=== PATIENT | male | born 1975 | race American Indian/Alaskan Native ===

== ENCOUNTER 2021-06-15 06:43 | Emergency (ER) | payer SELFPAY ==
--- NOTE | 2021-06-15 07:33 | Emergency Department Report ---
ED Back Pain/Injury HPI - General Chief Complaint: Back Pain/Injury Stated Complaint: BACK PAIN Time Seen by Provider: 06/15/21 07:08 Source: patient Limitations: No Limitations - History of Present Illness Initial Comments: 45-year-old male who denies any significant past medical history presents to the ER today with complaints of low back pain. Patient states that his pain started about 3 days ago. He states that he woke up with the pain. He states that is mainly in the left lower back, and radiates into his left posterior thigh. 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 He states that he had muscle strain before in the past but this pain does not feel similar. He states that the pain is con stant and is worse with any movement. He did take Aleve last night without any relief of the pain. He denies any associated abdominal pain, lower extremity numbness, weakness, tingling, saddle anesthesia, chest pain or shortness of breath. He denies any history of drug use or alcohol abuse. MD Complaint: back pain -: Gradual, days(s) (3) - Related Data Previous Rx's Medication Instructions Recorded Last Taken Type Ibuprofen [Motrin] 600 mg PO Q8H PRN #30 tablet 03/19/21 Unknown Rx methOCARBAMOL [Robaxin TAB] 750 mg PO Q8H PRN #30 tablet 06/15/21 Unknown Rx methylPREDNISolone [Medrol 4MG 4 mg PO DAILY #1 tab.ds.pk 06/15/21 Unknown Rx DOSEPAK (21 tabs)] traMADoL [Ultram] 50 mg PO Q4HR PRN #12 tablet 06/15/21 Unknown Rx Allergies Allergy/AdvReac Type Severity Reaction Status Date / Time No Known Allergies Allergy Unverified 03/19/21 16:14 ED Review of Systems ROS: Stated complaint: BACK PAIN Other details as noted in HPI Comment: All other systems reviewed and negative Constitutional: denies: chills, fever Eyes: denies: eye pain, eye discharge, vision change ENT: denies: ear pain, throat pain Respiratory: denies: cough, shortness of breath, SOB with exertion, SOB at rest, wheezing Cardiovascular: denies: chest pain, palpitations, dyspnea on exertion, edema, syncope, paroxysmal nocturnal dyspnea Gastrointestinal: denies: abdominal pain, nausea, diarrhea, constipation, hematemesis, melena, hematochezia Genitourinary: denies: urgency, dysuria, frequency, hematuria, discharge, testicular pain, testicular mass Musculoskeletal: back pain Skin: denies: rash, lesions, change in color, change in hair/nails, pruritus Neurological: denies: headache, weakness, numbness, paresthesias, confusion, abnormal gait, vertigo Psychiatric: denies: anxiety, depression, auditory hallucinations, visual hallucinations, homicidal thoughts, suicidal thoughts Hematological/Lymphatic: denies: easy bleeding, easy bruising, swollen glands ED Past Medical Hx - Past Medical History Previous Medical History?: No - Surgical History Past Surgical History?: No - Medications Home Medications: Home Medications Medication Instructions Recorded Confirmed Last Taken Type Ibuprofen [Motrin] 600 mg PO Q8H PRN #30 tablet 03/19/21 Unknown Rx methOCARBAMOL [Robaxin TAB] 750 mg PO Q8H PRN #30 tablet 06/15/21 Unknown Rx methylPREDNISolone [Medrol 4MG 4 mg PO DAILY #1 tab.ds.pk 06/15/21 Unknown Rx DOSEPAK (21 tabs)] traMADoL [Ultram] 50 mg PO Q4HR PRN #12 tablet 06/15/21 Unknown Rx ED Physical Exam - General Limitations: No Limitations General appearance: alert, in no apparent distress - Head Head exam: Present: atraumatic, normocephalic, normal inspection - Eye Eye exam: Present: normal appearance, PERRL, EOMI Pupils: Present: normal accommodation - Neck Neck exam: Present: normal inspection, full ROM - Respiratory Respiratory exam: Present: normal lung sounds bilaterally. Absent: respiratory distress, wheezes, rales, rhonchi - Cardiovascular Cardiovascular Exam: Present: regular rate, normal rhythm, normal heart sounds - GI/Abdominal GI/Abdominal exam: Present: soft. Absent: distended, tenderness, guarding, rebound, rigid - Back Exam Back exam: Present: normal inspection, paraspinal tenderness (left mid to lower lumbar area). Absent: full ROM (ROM of lumbar spine decreased due to pain ), CVA tenderness (R), CVA tenderness (L) - Neurological Exam Neurological exam: Present: alert, oriented X3, CN II-XII intact, normal gait - Psychiatric Psychiatric exam: Present: normal affect, normal mood - Skin Skin exam: Present: intact ED Course Vital Signs 06/15/21 06:45 Temperature 98.2 F Pulse Rate 78 Respiratory 16 Rate Blood Pressure 121/91 O2 Sat by Pulse 96 Oximetry ED Medical Decision Making - Medical Decision Making The patient presented with acute back pain. The patient is resting comfortably and feels better, is alert, talkative, interactive and in no distress. The patient is neurologically intact and is ambulatory in the ED. the patient has no fever, no bowel or bladder incontinence, no saddle anesthesia and is otherwise alert and well-appearing. Suspect his symptoms related to lumbar radiculopathy/sciatica. His history, physical examination and does not suggest the presence of acute spinal epidural abscess, acute epidural bleed, cauda equina syndrome, abdominal/thoracic aortic aneurysm, aortic dissection or other acute process requiring further testing, treatment or consultation in the emergency department. The vital signs have been stable. Discussed suspected dx and tx plan with patient. The patient condition is stable and appropriate for discharge. The patient will pursue further outpatient evaluation with the primary care physician or other designated or consulting physician as indicated in the discharge instructions. Critical care attestation.: If time is entered above; I have spent that time in minutes in the direct care of this critically ill patient, excluding procedure time. ED Disposition Clinical Impression: Sciatica of left side Disposition: 01 HOME / SELF CARE / HOMELESS Is pt being admited?: No Does the pt Need Aspirin: No Condition: Stable Instructions: Sciatica, [id number] Additional Instructions: I recommend that you take the Ultram, the Medrol Dosepak, and the Robaxin as prescribed to help with the pain. The Ultram and the Robaxin can make you sleepy so do not drive or operate machinery while taking these medications. I do recommend doing the back stretching exercises listed in your discharge instructions. If your pain continues despite stretching exercises and pain medications I do recommend that you follow-up with orthospine specialist listed on your discharge instructions. Return to the ER if your symptoms worsens in any way. Prescriptions: methylPREDNISolone [Medrol 4MG DOSEPAK (21 tabs)] 4 mg PO DAILY #1 tab.ds.pk methOCARBAMOL [Robaxin TAB] 750 mg PO Q8H PRN #30 tablet PRN Reason: back spasm traMADoL [Ultram] 50 mg PO Q4HR PRN #12 tablet PRN Reason: Pain Referrals: [facility] [Provider Group] - 3-5 Days Forms: Work/School Release Form(ED) Time of Disposition: 07:34
[2021-06-15] MEDS ORDERED: dexAMETHasone 20 MG/5 ML VIAL IM ONE (07:34)
[2021-06-15] MEDS ORDERED: KETOROLAC 60 MG/2 ML INJ IM ONE (07:34)
[2021-06-15 08:04] VITALS: BP 115/84
== END 2021-06-15 08:04 | disposition home or self-care (01) ==
LOC: ED 06:43
DX: M54.32 Sciatica, left side (principal)
CPT/HCPCS: 96372; 99282; J1100; J1885

== ENCOUNTER 2021-07-14 05:45 | Emergency (ER) | payer SELFPAY ==
[2021-07-14 06:01] VITALS: BP 142/90
== END 2021-07-14 10:21 | disposition left against medical advice (07) ==
LOC: ED 05:45
DX: M79.605 Pain in left leg (principal); Z53.21 Procedure and treatment not carried out due to patient leaving prior to being seen by health care provider

== ENCOUNTER 2021-07-23 02:45 | Emergency (ER) | payer SELFPAY ==
[2021-07-23] MEDS ORDERED: HYDROmorphone 1 MG/1 ML INJ IM ONE (03:22)
[2021-07-23] MEDS ORDERED: dexAMETHasone 20 MG/5 ML VIAL IM ONE (03:22)
[2021-07-23] MEDS ORDERED: ONDANSETRON 4 MG ODT TAB PO ONE (03:23)
[2021-07-23] MEDS ORDERED: MORPHINE 15 MG TAB PO ONE (03:23)
[2021-07-23] MEDS ORDERED: KETOROLAC 60 MG/2 ML INJ IM ONE (03:23)
[2021-07-23] MEDS ORDERED: HYDROmorphone 1 MG/1 ML INJ ONE (03:54)
--- NOTE | 2021-07-23 04:51 | Emergency Department Report ---
ED Back Pain/Injury HPI - General Chief Complaint: Back Pain/Injury Stated Complaint: BACK PAIN Source: patient Limitations: No Limitations - History of Present Illness Initial Comments: Patient is a 45-year-old -[place] male with a history of chronic low back pain with sciatica who presented to the ED with acute exacerbation of his chronic low back pain that radiates to the lower extremities bilaterally for the last 3 days, worse in the last 12 hours. Patient states that he has been taking [id number] medication with no relief. Patient states that 2 hours prior to arrival in the ED he tried to go to sleep after taking ibuprofen but could not give to see because of worsening pain that continues to be constant and persistent. Patient denies dysuria, urinary frequency and urgency, hematuria, testicular pain, fever, chills, cough, nausea and vomiting, abdominal pain, dizziness, syncope, heavy lifting, head or neck injuries or bilateral lower extremity weakness. MD Complaint: back pain, other (Chronic low back pain that radiates to the lower extremities bilaterally) -: Sudden, days(s) (3) Similar Symptoms Previously: Yes (Chronic low back pain and sciatica) Place: home Radiation: left leg, right leg Severity: severe Severity scale (0 -10): 8 Quality: sharp, aching Consistency: constant Improves With: none Worsens With: movement, supine, walking Context: while lifting, turning/twisting Associated Symptoms: denies other symptoms. denies: confusion, weakness, numbness, difficulty walking, cough, difficulty urinating, diaphoresis, incontinence, fever/chills, constipation, headaches, abdominal pain, loss of appetite, malaise, nausea/vomiting, rash, seizure, shortness of breath, syncope, other Treatments Prior to Arrival: NSAIDS - Related Data Previous Rx's Medication Instructions Recorded Last Taken Type Ibuprofen [Motrin] 600 mg PO Q8H PRN #30 tablet 03/19/21 Unknown Rx methylPREDNISolone [Medrol 4MG 4 mg PO DAILY #1 tab.ds.pk 06/15/21 Unknown Rx DOSEPAK (21 tabs)] HYDROcodone/APAP 5-325 [[place] 1 each PO Q6HR PRN #12 tablet 07/02/21 Unknown Rx 5/325] Gabapentin 300 mg PO BID #60 cap 07/23/21 Unknown Rx Ibuprofen [Motrin] 800 mg PO Q8HR PRN #30 tablet 07/23/21 Unknown Rx methOCARBAMOL [Robaxin TAB] 750 mg PO Q8H PRN #30 tablet 07/23/21 Unknown Rx predniSONE [Deltasone] 60 mg PO QDAY #15 tab 07/23/21 Unknown Rx traMADoL [Ultram 50 MG tab] 50 mg PO Q6HR PRN #12 tablet 07/23/21 Unknown Rx Allergies Allergy/AdvReac Type Severity Reaction Status Date / Time No Known Allergies Allergy Verified 07/14/21 06:01 ED Review of Systems ROS: Stated complaint: BACK PAIN Other details as noted in HPI Constitutional: denies: chills, fever Eyes: denies: eye pain, eye discharge, vision change ENT: denies: ear pain, throat pain Respiratory: denies: cough, shortness of breath, wheezing Cardiovascular: denies: chest pain, palpitations Endocrine: no symptoms reported Gastrointestinal: denies: abdominal pain, nausea, vomiting, diarrhea Genitourinary: denies: urgency, dysuria Musculoskeletal: back pain (Low back pain that radiates to the lower extremities bilaterally), arthralgia, myalgia. denies: joint swelling Skin: denies: rash, lesions Neurological: denies: headache, weakness, paresthesias Psychiatric: denies: anxiety, depression Hematological/Lymphatic: denies: easy bleeding, easy bruising ED Past Medical Hx - Past Medical History Previous Medical History?: No Hx Hypertension: No (did in the past, but not on meds) Additional medical history: Chronic low back pain with bilateral sciatica - Surgical History Past Surgical History?: No - Medications Home Medications: Home Medications Medication Instructions Recorded Confirmed Last Taken Type Ibuprofen [Motrin] 600 mg PO Q8H PRN #30 tablet 03/19/21 Unknown Rx methylPREDNISolone [Medrol 4MG 4 mg PO DAILY #1 tab.ds.pk 06/15/21 Unknown Rx DOSEPAK (21 tabs)] HYDROcodone/APAP 5-325 [[place] 1 each PO Q6HR PRN #12 tablet 07/02/21 Unknown Rx 5/325] Gabapentin 300 mg PO BID #60 cap 07/23/21 Unknown Rx Ibuprofen [Motrin] 800 mg PO Q8HR PRN #30 tablet 07/23/21 Unknown Rx methOCARBAMOL [Robaxin TAB] 750 mg PO Q8H PRN #30 tablet 07/23/21 Unknown Rx predniSONE [Deltasone] 60 mg PO QDAY #15 tab 07/23/21 Unknown Rx traMADoL [Ultram 50 MG tab] 50 mg PO Q6HR PRN #12 tablet 07/23/21 Unknown Rx ED Physical Exam - General Limitations: No Limitations General appearance: alert, in no apparent distress - Head Head exam: Present: atraumatic, normocephalic, normal inspection - Eye Eye exam: Present: normal appearance, PERRL, EOMI Pupils: Present: normal accommodation - ENT ENT exam: Present: normal exam, normal orophraynx, mucous membranes moist, TM's normal bilaterally, normal external ear exam - Neck Neck exam: Present: normal inspection, full ROM - Respiratory Respiratory exam: Present: normal lung sounds bilaterally. Absent: respiratory distress, wheezes, rales, rhonchi, chest wall tenderness, accessory muscle use - Cardiovascular Cardiovascular Exam: Present: regular rate, normal rhythm, normal heart sounds. Absent: systolic murmur, diastolic murmur, rubs, gallop - GI/Abdominal GI/Abdominal exam: Present: soft, normal bowel sounds. Absent: tenderness, guarding, rebound, hyperactive bowel sounds, hypoactive bowel sounds, organomegaly, mass - Extremities Exam Extremities exam: Present: normal inspection, full ROM, normal capillary refill. Absent: tenderness, pedal edema, joint swelling - Back Exam Back exam: Present: normal inspection, full ROM, tenderness (Palpable lumbosacral paraspinal musculoskeletal tenderness; no midline tenderness), muscle spasm, paraspinal tenderness. Absent: CVA tenderness (R), CVA tenderness (L), vertebral tenderness - Neurological Exam Neurological exam: Present: alert, oriented X3, CN II-XII intact, normal gait, reflexes normal - Psychiatric Psychiatric exam: Present: normal affect, normal mood, anxious - Skin Skin exam: Present: warm, dry, intact, normal color. Absent: rash ED Course Vital Signs 07/23/21 02:45 Temperature 97.8 F Pulse Rate 80 Respiratory 18 Rate Blood Pressure 147/98 [Right] ED Medical Decision Making - Medical Decision Making This is a 45-year-old -[place] male with a history of chronic low back pain with sciatica who presented to the ED with acute exacerbation of his chronic low back pain that radiates to the lower extremities bilaterally for the last 3 days, worse in the last 12 hours. Patient states that he has been takin g [id number] medication with no relief. Patient states that 2 hours prior to arrival in the ED he tried to go to sleep after taking ibuprofen but could not give to see because of worsening pain that continues to be constant and persistent. In the ED, patient is alert and oriented x3 and is not in any distress. Patient however appears to be in significant pain. Patient was treated for pain in the ED. Patient's case is chronic with occasional exacerbation. On reevaluation, patient's pain is well controlled with medication. Patient was discharge home on pain medications and muscle relaxants and advised to follow-up with his primary care physician in 3 to 5 days for reevaluation or return to the ED immediately if symptoms get worse. - Differential Diagnosis Chronic back pain; muscle spasm; muscle strain; sciatica Critical care attestation.: If time is entered above; I have spent that time in minutes in the direct care of this critically ill patient, excluding procedure time. ED Disposition Clinical Impression: Spasm of muscle of lower back, Strain of muscle, fascia and tendon of lower back, initial encounter, Acute exacerbation of chronic low back pain Chronic low back pain with sciatica Qualifiers: Back pain laterality: bilateral Sciatica laterality: bilateral sciatica Qualified Code(s): M54.42 - Lumbago with sciatica, left side; M54.41 - Lumbago with sciatica, right side; G89.29 - Other chronic pain Disposition: 01 HOME / SELF CARE / HOMELESS Is pt being admited?: No Does the pt Need Aspirin: No Condition: Stable Instructions: Muscle Cramps and Spasms, [id number], Muscle Strain, [id number], Sciatica, [id number], Chronic Back Pain, [id number] Additional Instructions: Take medication with food, drink plenty fluids and follow-up with your primary care physician in 7 to 10 days for reevaluation. Return to the ED immediately if symptoms get worse. Prescriptions: predniSONE [Deltasone] 60 mg PO QDAY #15 tab Gabapentin 300 mg PO BID #60 cap Ibuprofen [Motrin] 800 mg PO Q8HR PRN #30 tablet PRN Reason: Pain , Severe (7-10) methOCARBAMOL [Robaxin TAB] 750 mg PO Q8H PRN #30 tablet PRN Reason: back spasm traMADoL [Ultram 50 MG tab] 50 mg PO Q6HR PRN #12 tablet PRN Reason: Pain Referrals: [facility] [Provider Group] - 7-10 days Time of Disposition: 04:52 Print Language: EMIRATI
[2021-07-23 05:55] VITALS: BP 135/90
== END 2021-07-23 04:00 | disposition home or self-care (01) ==
LOC: ED 02:45
DX: S39.012A Strain of muscle, fascia and tendon of lower back, initial encounter (principal); M54.41 Lumbago with sciatica, right side; G89.29 Other chronic pain; M62.830 Muscle spasm of back; X58.XXXA Exposure to other specified factors, initial encounter; Y93.89 Activity, other specified; Y92.89 Other specified places as the place of occurrence of the external cause; Y99.8 Other external cause status
CPT/HCPCS: 96372; 99282; J1100; J1170; J1885; J3490; Q0162